=== PATIENT | male | born 1980 | race Caucasian/White ===

== ENCOUNTER → 2019-08-01 | Emergency (ER) | payer BC | LOC: COL.ER 15:17 | DX: R69 Illness, unspecified (principal) ==

== ENCOUNTER 2019-08-04 15:50 | Outpatient (RCR) | payer BC ==
[~2019-08-04] VITALS: Wt 136.4 kg
[2019-08-15 16:37] VITALS: BP 115/80; PULSE 83; TEMP 97.3
== END 2019-10-30 | disposition home or self-care (01) ==
LOC: EUO
DX: Z23 Encounter for immunization (principal); Z20.3 Contact with and (suspected) exposure to rabies
CPT/HCPCS: 90375

== ENCOUNTER → 2019-08-04 | Emergency (ER) | payer BC ==
[2019-08-04 16:16] VITALS: BP 150/87; PULSE 82; TEMP 98.8
== END ==
LOC: COL.ER 15:53
DX: Z23 Encounter for immunization (principal); Z29.14 Encounter for prophylactic rabies immune globulin

== ENCOUNTER 2019-08-15 16:22 | Outpatient (RCR) | payer BC | END 2019-11-13 | disposition home or self-care (01) | LOC: COL.ER | DX: Z72.9 Problem related to lifestyle, unspecified (principal) ==

== ENCOUNTER 2023-05-16 13:15 | Emergency (ER) | payer BC ==
[~2023-05-16] VITALS: Ht 182.9 cm; Wt 165.9 kg
[2023-05-16 13:28] VITALS: TEMP 98.3
[2023-05-16 14:12] LABS: BASO % 0.4 % (0.0-2.0); EOS # 0.1 K/mm3 (0.0-0.7); EOS % 0.8 % (0.0-4.0); GRAN % 65.5 % (42.2-75.2); HEMATOCRIT 45.2 % (42.0-52.0); HEMOGLOBIN 15.6 g/dl (13.5-18.0); LYMPH # 2.6 K/mm3 (1.2-3.4); LYMPH % 24.1 % (20.0-51.0); MEAN CELL VOLUME 86 fl (80.0-100.0); MEAN CORPUSCULAR HEMOGLOBIN 30 pg (27-31); MEAN CORPUSCULAR HGB CONC 35 g/dl (33.0-37.0); MEAN PLATELET VOLUME 9.7 fl (7.4-10.4); MONO # 0.9 K/mm3 (0.1-0.6); MONO % 8.7 % (1.7-9.3); PLATELET COUNT 249 K/mm3 (130-400); RED BLOOD COUNT 5.26 M/mm3 (4.20-5.60); REDCELL DISTRIBUTION WIDTH-CV 12.4 % (11.5-14.5)
[2023-05-16 14:12] LABS: URINE APPEARANCE CLEAR (CLEAR/HAZY); URINE BLOOD NEGATIVE (NEGATIVE); URINE COLOR YELLOW (YELLOW); URINE GLUCOSE NEGATIVE (NEGATIVE); URINE KETONE NEGATIVE (NEGATIVE); URINE NITRATE NEGATIVE (NEGATIVE); URINE PROTEIN(semi-quant) NEGATIVE (NEGATIVE); URINE UROBILINOGEN 0.2 E.U/dL (0.2-1.0)
[2023-05-16 14:32] LABS: COLLECTION METHOD CLEAN CATCH
[2023-05-16 14:35] LABS: ALBUMIN 4.2 gm/dL (3.5-5.0); BILIRUBIN,TOTAL 0.6 mg/dL (0.2-1.2); C-REACTIVE PROTEIN 0.46 mg/dL (0.00-0.50); CALCIUM 9.9 mg/dL (8.4-10.2); CREATININE, serum 0.95 mg/dL (0.72-1.25); POTASSIUM 3.9 mmol/L (3.5-4.5); TOTAL PROTEIN 8.3 gm/dL (6.2-8.1)
[2023-05-16 15:52] VITALS: BP 142/86; PULSE 82
== END 2023-05-16 15:53 | disposition home or self-care (01) ==
LOC: COL.ER 13:15
PROVIDERS: Nurse Practitioner
DX: R10.11 Right upper quadrant pain (principal)